=== PATIENT | female | born 1970 | race Caucasian/White ===

== ENCOUNTER 2023-07-04 10:48 | Outpatient (AMB) | payer OTHER, SELFPAY ==
--- NOTE | 2023-07-04 11:25 | A.SPINEOV_ITS ---
Intake Visit Reasons: low back pain Intake Note: Ms. Aparicio is here today c/o Low back pain and Left sided Neck tension. Clinical Dietetic Technician Required: No Allergies No Known Allergies Allergy (Verified 07/04/23 11:26) Assessment & Plan Assessment & Plan (1) Lumbago: Code(s): M54.50 - Low back pain, unspecified Category: Medical Plan Dear colleague Thank you for referring Kermit Aparicio to the office today with a chief complaint of back pain. HPI: This 17-year-old female is complaining of progressive low back pain that has been going on for few years. The pain is located in the lumbar spine. It is constant. It is worse at the end of the week. She works for the [employer] service. She denies radiating down her legs. No numbness or weakness. She is tried chiropractic therapy and acupuncture. In the past she had an episode of severe acute lumbago after picking up something from the floor. PMH: Hypertension, hysterectomy, colon surgery Medications: Losartan, hydrochlorothiazide and Prozac Allergies: None Social history: . Nonsmoker Physical Exam: Pleasant female. No clear pain on palpation of the lumbar spine. Flexion-extension can be done without limitations. Straight leg raise is negative. No neurological deficits. Radiological Studies: No imaging available for review Impression/Plan: This patient is suffering from chronic low back pain that per history seems to get worse. She never had any imaging done of her lower spine and therefore I will order an MRI of the lumbar spine. She will return to my clinic after the MRIs done. Thank you for allowing me to participate in your patients care. total time spent was 30minutes in counseling ,coordination of plan, personal review of imaging, surgical decision making and subsequent plan Jeremiah Zafar MD, PhD Spine Fellowship Trained Neurosurgeon Director, [facility] Orders: Orders MR lumbar spine wo con Today M54.50 - Low back pain, unspecified Coding Level of Care Code New Pt Level 3 (98127) Diagnoses Lumbago M54.50
== END 2023-07-04 12:11 | disposition home or self-care (01) ==
PROVIDERS: PCP Hospitalist; Visit Provider Neurological Surgery
DX: M54.50 Low back pain, unspecified (principal)
CPT/HCPCS: 99203

== ENCOUNTER → 2023-07-04 10:48 | Outpatient (BNVA) | payer OTHER, SELFPAY | PROVIDERS: PCP Hospitalist; Visit Provider Neurological Surgery ==